=== PATIENT | male | born 1985 | race Caucasian/White ===

== ENCOUNTER 2018-06-18 23:13 | Emergency (ER) | payer MEDICAID ==
[~2018-06-18] VITALS: Ht 165.1 cm; Wt 77.1 kg
[2018-06-18 23:13] VITALS: BP_SYST 127
[2018-06-18] MEDS ORDERED: LIDOCAINE 1% 10 MG/ML, 20 ML MDV IJ ONE (23:30)
[2018-06-19 00:07] VITALS: BP_SYST 127
== END 2018-06-19 00:07 | disposition home or self-care (01) ==
LOC: SED 23:13
DX: L02.512 Cutaneous abscess of left hand (principal); R03.0 Elevated blood-pressure reading, without diagnosis of hypertension; F17.210 Nicotine dependence, cigarettes, uncomplicated
CPT/HCPCS: 10060; 99283; J2001